=== PATIENT | male | born 1980 | race African-American/Black ===

== ENCOUNTER 2016-10-12 12:32 | Emergency (ER) | payer SELFPAY ==
[2016-10-12] MEDS ORDERED: NO HOME MEDICATION XX (12:49)
[2016-10-12] MEDS ORDERED: ULTRAM50 M1 PO (13:24)
[2016-10-12] MEDS ORDERED: PENICILLIN V P500 M1 PO (13:24)
== END 2016-10-12 13:37 ==
LOC: EDMED 12:32
DX: K02.9 Dental caries, unspecified (principal); F17.210 Nicotine dependence, cigarettes, uncomplicated